=== PATIENT | male | born 1980 | race Caucasian/White ===

== ENCOUNTER 2020-07-08 20:39 | Emergency (ER) | payer MEDICAID ==
[~2020-07-08] VITALS: Ht 175.3 cm; Wt 76.7 kg
[2020-07-08 21:00] VITALS: Ht 175.3 cm; Wt 76.7 kg
[2020-07-08 23:09] VITALS: BP 132/95
== END 2020-07-08 23:10 | disposition home or self-care (01) ==
LOC: ED 20:39
DX: M62.830 Muscle spasm of back (principal); F10.10 Alcohol abuse, uncomplicated
CPT/HCPCS: J1885; Q0092